=== PATIENT | male | born 1965 | race Caucasian/White ===

== ENCOUNTER 2024-06-03 19:56 | Emergency (ER) | payer OTHER, SELFPAY ==
[2024-06-03 20:02] VITALS: BP 128/86
[2024-06-03 20:12] VITALS: BP 126/78
--- NOTE | 2024-06-03 20:26 | ED.GENMED ---
History of Present Illness
General
Chief Complaint: Rectal Bleeding
Source: patient
Exam Limitations: none
Time Seen by Provider: 06/03/24 20:08
History of Present Illness
History of Present Illness:
This is a 59 year old male that comes in with c/o rectal bleeding. States that he had a colonoscopy with polyp removal a few days ago. States that today he had diarrhea and dark red blood 3-4 times. States that he almost passed out. State that they
removed a polyp in the transverse colon and the rectum. states that he had a low grade fever last night and she gave him Advil and he went o sleep. Denies any chills, chest pain, SOB, abd pain, nausea, vomiting, headache, dizziness, urinary
burning.
Past History
Past History
ED Past Medical History: Hypercholesterolemia; Negative Asthma, HTN or NIDDM
ED Past Surgical History: None
Social History
Tobacco: Former smoker
Alcohol: Occasional
Personal:
Living: with family
Review of Systems
Review of Systems
All Other Systems: ROS reviewed and negative except as documented in HPI and ROS
Constitutional: Reports fever (Low grade but just felt hot according to ); Denies chills
EENT: Reports no symptoms
Respiratory: Reports no symptoms; Denies cough or trouble breathing
Cardiac: Reports no symptoms; Denies chest pain
ABD/GI: Reports diarrhea and bloody stools (Dark red); Denies abdominal pain, nausea or vomiting
: Reports no symptoms
Musculoskeletal: Reports no symptoms
Skin: Reports no symptoms
Neurological: Reports other (Near syncope); Denies dizzy or headache
Psychiatric: Reports no symptoms
Phy Exam
General Physical Exam
General Presentation: well appearing and no apparent distress
General age: appears stated age
General Skin: warm and dry
General Habitus: normal
General Mental: alert
General Hydration: appears well hydrated
ENT Exam
ENT Exam: TM's normal, pharynx normal and neck supple
Eye Exam
Eye Exam: EOMI
Cardiovascular Exam
Cardiovascular Exam: regular rate/rhythm, no edema, no murmur and normal peripheral pulses
Pulmonary Exam
Pulmonary Exam: lungs clear, no respiratory distress, no rales, chest non tender, no crackles, no rhonchi, no wheezing and no cough
Gastrointestinal Exam
Gastrointestinal Exam: normal bowel sounds, non tender, soft, no organomegaly, no pulsatile mass, non distended and other (Bright red blood hem positive)
Musculoskeletal Exam
Musculoskeletal Exam: full ROM and no edema
Skin Exam
Skin Exam: normal color, warm/dry, no rash and no petechia
Psychiatric Exam
Psychiatric Exam: normal mood/affect
Course
Orders/Labs/Results
Orders:
Orders
06/03/24 20:06
EKG [Electrocardiogram (*1)] Urgent
Reason for Study: Vertigo / Dizzy
EKG- Treatment ONCE
06/03/24 20:20
CMP [Comprehensive Metabolic Panel] Urgent
Complete Blood Count/With Diff Urgent
06/03/24 20:23
CT Abd/pelvis Angio W/wo Iv Urgent
Comment: Colonoscopy yesterday with polyp removal
Reason For Exam: GI bleeding
Pantoprazole [Protonix IV] 80 mg IV NOW STA
06/03/24 20:25
0.9% Sodium Chloride 500 ml [Nss] 500 ml IV BOLUS
06/03/24 20:32
Type+Screen Urgent
06/03/24 20:58
ABO2 Urgent
BBK Wristband Number:
Associate notified that ABO2 has been ordered: [id number]
Date: 06/03/24
Time: 20:51
Chief Technician ID: [id number]
06/03/24 23:04
Admit/Transfer Patient As Directed
Co-Sign Provider:
Level of Care: Observation services
Assign to:: Telemetry
Physician / Group: dread
Diagnosis: post polypctomy bleeding
Reason for Telemetry: Arrhythmia
Date to Stop Telemetry: 06/06/24
Time to Stop Telemetry: 11:00
Code Status As Directed
Resuscitation Status: Full Code
PRN Pain Medication Management As Directed
May give lesser potent ordered pain med per pt: Yes
preference::
Protocol:: Medication orders for pain may be administered in a
manner that supports deferring to patient preference
when the pt is:
- Requesting an ordered lesser potent pain medication.
Least to most potent pain medications are defined
as: acetaminophen < NSAID < tramadol < opioids
(morphine, oxycodone, hydromorphone).
- Requesting a lesser dose of the same medication IF
ORDERED.
- Requesting a less intrusive route of administration
if both routes are prescribed by the provider (PO <
IV).
06/06/24 11:00
DC Protocol for Telemetry ONCE
Abnormal Lab Results
06/03/24
20:20
Absolute Neuts (auto) 6.7 H 10^3/uL
(1.4-6.5)
Absolute Lymphs (auto) 1.1 L 10^3/uL
(1.2-3.4)
Absolute Monos (auto) 0.7 H 10^3/uL
(0.1-0.6)
Neutrophils % 77.5 H %
(42.2-75.2)
Lymphocytes % 12.3 L %
(20.5-51.1)
BUN 22 H mg/dl
(9-20)
Glucose 150 H mg/dl
(70-99)
06/03/24 20:20
06/03/24 20:20
Dehydration. Hyperglycemia,
Vital Signs
Initial and Last Documented VS:
Initial Vital Signs
Temp Pulse Resp BP Pulse Ox
98.1 F 86 18 128/86 100
06/03/24 20:02 06/03/24 20:02 06/03/24 20:02 06/03/24 20:02 06/03/24 20:02
Last Documented Vital Signs
Temp Pulse Resp BP Pulse Ox
98.1 F 86 18 133/84 99
06/03/24 20:02 06/03/24 20:02 06/03/24 20:02 06/03/24 22:12 06/03/24 22:30
MDM/Problems Addressed
Differential Diagnosis Includes:
Gi bleeding,
MDM/Problems Addressed:
This is a 59 year old male that comes in with c/o rectal bleeding. States that he had 3-4 stools and it was dark red. States that he had a colonoscopy 06/01/24 and had 2 polyps removed.
Will check labs, CTA abd/pelvis. Explained to patient that the fact that he almost passed out he will most likely be admitted.
Back into see patient and son. Explained that his CT scan is negative for any active bleeding. However, will admit for 23 hour observation. Hospitalist notified.
Patient was seen by the Hospitalist and after seen the patient decided he wanted to go home. Patient will return with any further bleeding.
Chronic conditions affecting care:
NA
Acute Exacerbation and/or Progression of Chronic Illness:
NA
*Radiology
Radiology exam reviewed: radiology read reviewed (CT-There was no active gastrointestinal hemorrhage during the course of the examination. There is a surgical clip at the anterior aspect of the mid transverse colon and a 4mm appendicolith without CT
evidence of appendicitis. Diverticuli are present in the colon with no CT evidence of diverticulitis) and other (CT cont- There is a 3.5cmm right renal cyst. )
*Pulse Oximetry
Patient hypoxic: no
*EKG
Interpreted by ED Provider?: NA
Rate: EKG- N/A
*Critical Care Note
Total Time (30-74mins, 75-104mins- exclusive of procedures): Not Applicable
ED Attending Note
-
Portions of this chart may have been created with voice recognition software.� Occasional wrong word or��sound alike� substitutions may have occurred due to the inherent limitations of voice recognition software.
Discharge Plan
Departure
Patient Disposition: Home (Routine Discharge)
Date of Disposition: 06/03/24
Time of Disposition: 22:50
Admit to: Med/Surg
Patient with high blood pressure during this ER visit?: Yes
Condition: Good
Covid-19: Not Applicable
Discharge Problem:
Rectal bleeding
Instructions: Bloody Stools, Adult ED, BLOOD PRESSURE
Prescriptions:
New
pantoprazole [Protonix] 40 mg tablet,delayed release (DR/EC)
40 mg PO DAILY Qty: 10 0RF
No Action
No Current Medications
0
Referrals:
Alexa Meza DO [Family Provider] -
Activity Restrictions/Additional Instructions:
As discussed, there was no active bleeding noted on the CT scan. Your Hgb is normal. Please follow up with the GI specialist for further evaluation. You have also had a prescription for Protonix sent to your pharmacy for the the next 10 days. This
will help coat your stomach. IF YOU HAVE ANY RECTAL BLEEDING, DIZZINESS, OR YOU HAVE ANY OTHER CONCERNS PLEASE RETURN TO THE EMERGENCY ROOM.
Interventions
Interventions:
*Risk Screen - Suicide Last Done: 06/03/24 20:02
*General Assessment Last Done: 06/03/24 20:02
*Neglect/Abuse Screening Last Done: 06/03/24 20:02
ED- Fall Risk Assessment Last Done: 06/03/24 20:53
*ED COVID-19 Vaccine History Last Done: 06/03/24 20:02
JO-Rffycj-Khgknbvkrh Assessment Last Done: 06/03/24 20:53
ED- Cardiac Assessment Last Done: 06/03/24 20:53
ED- Pulmonary Assessment Last Done: 06/03/24 20:53
Discharge Date and Time
Print Language: OCCITAN
[2024-06-03 20:32] LABS: % Basophils 0.5 % (0-2); % Eosinophils 0.6 % (0-6); % Immature Granulocytes 0.5 % (0-0.5); % Lymphocytes 12.3 % (20.5-51.1); % Monocytes 8.6 % (1.7-9.3); % Neutrophils 77.5 % (42.2-75.2); Absolute Eosinophils 0.1 10^3/uL (0-0.7); Absolute Lymphocytes 1.1 10^3/uL (1.2-3.4); Absolute Monocytes 0.7 10^3/uL (0.1-0.6); Absolute Neutrophils 6.7 10^3/uL (1.4-6.5); Hematocrit 46.5 % (39.0-52.0); Hemoglobin 15.5 g/dL (13.0-18.0); Mean Corp Hgb Conc. 33.3 g/dL (33.0-37.0); Mean Corpuscular Hgb 29.6 pg (27.0-31.0); Mean Corpuscular Volume 88.9 fL (80.0-94.0); Mean Platelet Volume 10.4 fL (7.4-10.4); Nucleated Red Blood Cells % 0 % (-); Platelet Count 170 10^3/uL (130-400); Red Blood Cell Count 5.23 10^6/uL (4.70-6.10); Red Cell Dist. Width 12.4 % (11.5-14.5); White Blood Cell Count 8.6 10^3/uL (4.8-10.8)
[2024-06-03] MEDS: NSS 500 IV (20:36)
[2024-06-03] MEDS: PROTONIX IV 80 MG IV (20:37)
[2024-06-03 20:44] VITALS: BMI 28.1
[2024-06-03 20:48] LABS: ALT (SGPT) 20 U/L (0-50); AST (SGOT) 27 U/L (17-59); Albumin 4.5 g/dl (3.5-5.0); Alkaline Phosphatase 58 U/L (38-126); Blood Urea Nitrogen 22 mg/dl (9-20); Calcium 9.2 mg/dl (8.4-10.2); Carbon Dioxide 26 mmol/L (22-30); Chloride 100 mmol/L (98-107); Estimated Creatinine Clearance 67 ml/min; Glucose 150 mg/dl (70-99); Potassium 4.2 mmol/L (3.5-5.1); Sodium 135 mmol/L (135-145); Total Bilirubin 0.8 mg/dl (0.2-1.3); Total Protein 6.8 g/dl (6.3-8.2); eGFR > 60.00
[2024-06-03 21:00] VITALS: BP 117/78
[2024-06-03 22:12] VITALS: BP 133/84
--- NOTE | 2024-06-03 23:06 | HPS.HSE ---
Family Physician
-
Family Physician: Alexa Meza
Chief Complaint
-
rectal bleeding
History of Present Illness
59-year-old male past medical history of hypercholesteremia presenting with rectal bleeding. He had a colonoscopy with transverse colon/rectal polyp removal 2 days ago. Colonoscopy was performed due to positive Cologuard test. Today he had
diarrhea and dark red blood 3-4 times. He almost passed out afterwards. He had a low-grade fever last night. He denies chills, chest pain, shortness of breath, abdominal pain, nausea or vomiting, headache, dizziness or urinary symptoms. He
denies any further bleeding.
No family history of colon or rectal problems.
Denies smoking or alcohol use.
Medical History
Past Medical History
Past Medical History: Reports Other (hypercholesteremia )
Past Surgical History: Reports None
Social History
Tobacco: Non-smoker
Alcohol: None
Drug: None
Family History
Family History: Not pertinent
Allergies / Home Medications
Allergies reflects when Allergies were last updated in [facility].
Home Medications with original date entered in [facility]
Allergy/Medication List:
Allergies
Allergy/AdvReac Type Severity Reaction Status Date / Time
No Known Allergies Allergy Unverified 06/03/24 20:00
Home Medications
No Meds [No Current Medications] 06/03/24
Review of Systems
-
History Source: Patient
A 12 point ROS was completed and negative except as noted: Yes
Constitutional: Reports No Symptoms
EENT: Reports No Symptoms
Respiratory: Reports No Symptoms
Cardiac: Reports No Symptoms
Abdomen/GI: Reports See HPI
: Reports No Symptoms
Musculoskeletal: Reports No Symptoms
Skin: Reports No Symptoms
Neurological: Reports No Symptoms
Endocrine: Reports No Symptoms
Hematologic/Lymphatic: Reports No Symptoms
Psych: Reports No Symptoms
Physical Exam
Vital Signs
Vital Signs
Temp Pulse Resp BP Pulse Ox
98.1 F 86 18 133/84 99
06/03/24 20:02 06/03/24 20:02 06/03/24 20:02 06/03/24 22:12 06/03/24 22:30
Physical Exam
General: Well Developed, Well Nourished and No Apparent Distress
HEENT: NormoCephalic, Moist mucous membranes and Atraumatic
Respiratory: Clear
Cardiac: S1/S2 and Regular Rhythm; No Murmur or Rub
GI: Soft, Non Tender, Non Distended and Normal Bowel Sounds; No Organomegaly
Rectal: Deferred by Provider
Musculoskeletal: No Clubbing, No Cyanosis and No Edema
Skin: No Rash
Neuro: Nonfocal/grossly intact
Laboratory Results
-
06/03/24 20:20
06/03/24 20:20
Laboratory Results
Total Bilirubin 0.8 mg/dl (0.2-1.3) 06/03/24 20:20
AST 27 U/L (17-59) 06/03/24 20:20
ALT 20 U/L (0-50) 06/03/24 20:20
Alkaline Phosphatase 58 U/L (38-126) 06/03/24 20:20
Data Reviewed
-
Lab Data: Labs Reviewed by me
Old Records: Reviewed
Impression/Plan
-
IMPRESSION:
PLAN:
# Post polypectomy rectal bleeding
# Near syncopal episode secondary to bleeding
-Hemoglobin 15
-CT angiogram of abdomen shows no active bleeding, there is surgical clip at the anterior aspect of the mid transverse colon and a 4 mm appendicolith without appendicitis
-Clear liquid diet
-Monitor hemoglobin, and can hopefully discharge tomorrow if no further bleeding
-GI consulted
Hypercholesterolemia
Full code
DVT prophylaxis�SCDs
Clear liquid diet
== END 2024-06-03 23:25 | disposition home or self-care (01) ==
LOC: EMR 19:56
PROVIDERS: Student in an Organized Health Care Education/Training Program; EMERGENCY PHYSICIAN Emergency Medicine; FAMILY PHYSICIAN Family Medicine; OTHER PHYSICIAN Hospitalist
DX: R55 Syncope and collapse (principal); K62.5 Hemorrhage of anus and rectum; R50.9 Fever, unspecified; R19.7 Diarrhea, unspecified; R03.0 Elevated blood-pressure reading, without diagnosis of hypertension; N28.1 Cyst of kidney, acquired; E78.00 Pure hypercholesterolemia, unspecified; Z98.890 Other specified postprocedural states; Z86.0100 Personal history of colon polyps, unspecified; Z87.891 Personal history of nicotine dependence
CPT/HCPCS: 99284; 96374; 74174; 80053; 85025; 86850; 86900; 86901; Q9967